=== PATIENT | male | born 1950 | race Caucasian/White ===

== ENCOUNTER 2016-09-19 15:48 | Inpatient (IN) | payer MEDICARE, BC ==
[~2016-09-19] VITALS: Ht 182.9 cm; Wt 74.8 kg
--- NOTE | ~2016-09-19 | DS ---
PATIENT'S NAME: MASON BARROSO [facility] AGE: 66 Y [address] ROOM: [address] [address] [place] [facility] [place]: 09/19/2016 Discharge Summary DISCHARGE DATE: 09/30/2016 FAMILY PHYSICIAN: Cheikh Trotter MD ATTENDING PHYSICIAN: Ferdinand Womack FINAL DIAGNOSES: 1. Systemic inflammatory response syndrome. 2. Leukocytosis secondary to likely Ruth. 3. Head and neck cancer. 4. Dysphagia. 5. Hyponatremia. 6. Chronic respiratory failure secondary to obstructive sleep apnea. 7. Pustular rash secondary to chemo. 8. Hypophosphatemia. CONSULTANTS ON THE CASE: 1. Dr. Everett. 2. Dr. De La Paz. 3. Dagmar Ulloa APRN. HOSPITAL COURSE: Please see details of admission in the H and P by Dr. Womack. Briefly, the patient was admitted for systemic inflammatory response syndrome secondary to his dysphagia and immunocompromization from his head and neck cancer. Dr. Everett followed along the case, and the patient continued to receive his oral chemotherapeutics as per Dr. Everett. The patient was started on acyclovir, Diflucan, and Magic Mouthwash. Dr. De La Paz was consulted as he was previously scheduled to have a PEG tube placement done. SCDs were utilized for DVT prophylaxis. Upon admission, code status was DNR/DNI. Home medications were continued as per his medication reconciliation. The patient was found to be an adequate candidate to undergo PEG tube placement with moderate sedation. PEG tube was placed without any difficulty. Nutrition was consulted for tube feedings. Tube feeds were initiated as per dietary recommendations on 09/20/2016. We did initiate speech therapy with a clear liquid diet. Levaquin and Azactam were able to be discontinued. The patient suffered some cutaneous effects of his chemotherapy. We monitored it closely his mucositis. Did improve quickly with the use of the mouthwash and the antibiotics and antivirals. On 09/21/2016, heparin was initiated for DVT prophylaxis. On 09/22/2016, heparin was discontinued. Lovenox was started. Vancomycin was initiated for sacral wound which appeared to be cellulitic. WOC was consulted for further evaluation and treatment. The patient continued to work with therapies, his strength and condition improved. We did have to replace some phosphorus. Chemotherapy was initiated on 09/25/2016 as per Oncology recommendations. Fluconazole was able to be discontinued on 09/27/2016. Acyclovir and isolation were discontinued on 09/27/2016 as well. PATIENT'S NAME: MASON BARROSO [facility] AGE: 66 Y [address] ROOM: [place] [address] [place] [facility] [place]: 09/19/2016 Discharge Summary DISCHARGE DATE: 09/30/2016 FAMILY PHYSICIAN: Cheikh Trotter MD ATTENDING PHYSICIAN: Ferdinand Womack It was determined that his skin lesions were more of folliculitis consistent with his chemotherapy side effects. On 09/30/2016, it was felt that the patient could safely be discharged. We discontinued his nystatin and switched him over to oral doxycycline and acyclovir for treatment of his rash and for suppression in his immunocompromised situation. Discharge instructions were discussed with Dr. Everett prior to dismissal. DIAGNOSTICS: On admission; white blood cell count was 29.1, hemoglobin 12.1, hematocrit 34.5, platelets were 89. On the day of discharge, white blood cell count was 2.8, hemoglobin 10.3, hematocrit 29.4, platelets 47. On admission; sodium was 136, potassium 4.0, chloride 100, bicarb 29, glucose 134, BUN 18, creatinine 0.6. Prior to discharge; sodium was 132, potassium 4.3, chloride 93, bicarb 32, glucose 149, BUN was 11, creatinine 0.4. Phosphorus was 1.8. Herpes zoster was negative for the sacral wound. His blood cultures were negative at 5 days. Viral culture of the skin lesion showed no isolated viruses at 7 days. Chest x-ray on 09/19/2016 shows no vascular congestion or acute infiltrates. DISCHARGE INSTRUCTIONS: The patient is to resume his previous diet. Continue with tube feeds as directed. His activity is as tolerated. He will see Dr. Everett on as scheduled. Home health will be resumed. DISCHARGE MEDICATIONS: 1. Acyclovir 800 mg daily, #20. 2. Doxycycline 100 mg daily, #20. 3. Levothyroxine 88 mcg daily. 4. Omeprazole 20 mg daily. 5. Prednisone 20 mg twice daily. 6. Flomax 0.4 mg at bedtime. 7. Hydrocodone 5/325 one to two tabs every 4 hours as needed. 8. Magic Mouthwash 5 mL p.o. every 4 hours as needed. 9. Ativan 0.5 mg p.o. 3 times daily p.r.n. 10. Lidopril, apply topically as needed to the port site. 11. Compazine 10 mg q.8 hours p.r.n. We do appreciate participating in this patient's care, and thank you very much for the ability to serve them while hospitalized at [facility]. Time spent coordinating details of discharge was greater than 30 minutes which was spent coordinating with consulting physicians and care management, completion of medication reconciliation, and education to the patient and family on above-mentioned diagnoses. MOISÉS US FOR TIGRE CADENA MD PATIENT'S NAME: MASON BARROSO [facility] AGE: 66 Y [address] ROOM: [place] [address] [place] [facility] [place]: 09/19/2016 Discharge Summary DISCHARGE DATE: 09/30/2016 FAMILY PHYSICIAN: Cheikh Trotter MD ATTENDING PHYSICIAN: Ferdinand Womack/mirian /[id number] d: 11/07/16 0644 t: 11/07/16 0901, DISCHARGE SUMMARY
--- NOTE | ~2016-09-19 | CON ---
PATIENT'S NAME: MASON BARROSO [facility] AGE: 66 Y [address] ROOM: [place] [address] [place] [facility] [place] DATE: 09/19/2016 Consultation DISCHARGE DATE: FAMILY PHYSICIAN: Cheikh Trotter MD ATTENDING PHYSICIAN: JANET ALCALA REFERRING PHYSICIAN: Mae Zepeda MD REASON FOR VISIT: Buttocks rash. HISTORY OF PRESENT ILLNESS: This is a 66-year-old male patient who was admitted to [facility] with esophagitis and hypotension. He has a significant history of head and neck cancer, dysphagia, hypothyroidism, anxiety, depression, hypertension, and BPH. He quit smoking about 2 months ago. He had a PEG tube placed on September 20, 2016. He has had his buttocks rash for 3 to 4 days. It was documented on admission to the hospital on 09/19/2016. He notes a slight burning pain. He denies incontinence or history of buttocks rash. Currently afebrile. He is on acyclovir for treatment of viral esophagitis. He received his herpes zoster vaccine about 2 years ago. He admits to weakness. He is denying chest pain or shortness of breath. He denies abdominal pain, diarrhea, or constipation. No changes in vision noted. PAST MEDICAL HISTORY: Hypertension; head and neck cancer, patient follows up with Dr. Everett; BPH; dysphagia; hypothyroidism; anxiety; depression; arthritis; and GERD. PAST SURGICAL HISTORY: Back surgery, foot surgery, PEG tube placement with removal, right chest port placement, and recent PEG tube placement on 09/20/2016. FAMILY HISTORY: His mom suffered from diabetes and hypertension. SOCIAL HISTORY: The patient lives in [place], [place]. He had been smoking 1 to 3 packs of cigarettes per day for the last 50 years up until 2 months ago. The patient denies alcohol or illicit drug use. CURRENT MEDICATIONS: Please refer to the medication administration record. ALLERGIES: PATIENT'S NAME: MASON BARROSO [facility] AGE: 66 Y [address] ROOM: [place] [address] [place] [facility] [place] DATE: 09/19/2016 Consultation DISCHARGE DATE: FAMILY PHYSICIAN: Cheikh Trotter MD ATTENDING PHYSICIAN: JANET ALCALA CLAVULANIC ACID. REVIEW OF SYSTEMS: A 10-point review of systems was completed and all are negative except as mentioned above in the HPI. PHYSICAL EXAMINATION: VITAL SIGNS: Temperature 98.1, pulse 104, respirations 20, blood pressure 116/72, and pulse oximetry 96%. Height 6 feet 0 inch and weight 81.8 kg. GENERAL: The patient is alert. Hoarse voice. HEENT: Head: Normocephalic, atraumatic. No teeth noted. Tongue is slightly dry. RESPIRATIONS: Even and unlabored. NEUROLOGICAL: Grossly nonfocal. ABDOMEN: Soft and nontender. EXTREMITIES: +2 pedal pulses. Capillary refill intact. No edema noted. Extremities are warm to touch. Petechiae noted to the lateral malleolar areas. SKIN: Right buttocks has a dermatomal grouped red slightly pustular rash. It extends to the gluteal crease and medial left buttocks. No active vesicles noted. Scant serous exudate. Slightly tender to touch. Elbows have red superficial abrasions closed with brown scabs. Heels intact. LABORATORY DATA: White blood cell count 5.1, hemoglobin 10.8, hematocrit is 30.4, platelets 76, lymph number 0.1. Sodium 129, potassium 3.7, chloride 92, bicarb 31, BUN 9, creatinine 0.4, glucose 165, albumin 2.5, and magnesium 1.3. ASSESSMENT AND PLAN: Again, this is a 66-year-old male patient who was admitted to the [facility] with esophagitis and hypotension. Wound Care was consulted to evaluate and treat a right buttocks rash. 1. Herpes zoster to buttocks. The patient admits to burning pain and areas consistent with right buttocks dermatome. The patient is already on acyclovir for viral esophagitis. The patient is to continue and he will need at least a 7-day course. Since he is undergoing chemo and he is immunosuppressed, he may need a longer course or IV therapy. He denies numbness. No secondary bacterial infection noted. I instructed the patient to use good hand hygiene. No ophthalmic symptoms noted. The patient is currently in contact isolation. I am not sure what for, he does not need to be it for herpes zoster. 2. Elbow abrasions with dryness. Nursing is to apply Aloe [place] b.i.d. No open areas currently noted. Declined elbow protectors. 3. Dysphagia. PEG tube placed. 4. Head and neck cancer. Dr. Everett is on board. PATIENT'S NAME: MASON BARROSO [facility] AGE: 66 Y [address] ROOM: [place] [address] [place] [facility] [place] DATE: 09/19/2016 Consultation DISCHARGE DATE: FAMILY PHYSICIAN: Cheikh Trotter MD ATTENDING PHYSICIAN: JANET ALCALA I would like to thank Dr. Zepeda for this consultation. SHAREE LINDA APRN FOR MD CONCHITA FARFAN/mirian /[id number] d: 09/23/162030 t: 10/01/16 [facility], CONSULTATION REPORT
--- NOTE | ~2016-09-19 | OR ---
PATIENT'S NAME: MASON BARROSO [facility] AGE: 66 Y [address] ROOM: [address] [address] [place] [facility] [place] ADMIT DATE: 09/19/2016 OR/Procedure Report DISCHARGE DATE: FAMILY PHYSICIAN: Cheikh Trotter MD ATTENDING PHYSICIAN: JANET ALCALA SURGEON: Milton De La Paz MD WREATH MACHINE OPERATOR: DATE OF PROCEDURE: 09/20/2016 PREOPERATIVE DIAGNOSIS: Dysphagia and weight loss secondary to recurrent head and neck cancer. POSTOPERATIVE DIAGNOSIS: Dysphagia and weight loss secondary to recurrent head and neck cancer. PROCEDURE PERFORMED: EGD with PEG placement. ANESTHESIA: MAC with local. SPECIMEN: None. REASON FOR PROCEDURE: The patient is a 66-year-old gentleman, who had a PEG tube a few years ago. Unfortunately, he has had a recurrence of his cancer and during treatment of this has had progressive dysphagia. He is unable to maintain adequate nutrition and fluid intake. A feeding tube was requested. We initially had planned on doing this as an outpatient, but the patient was actually admitted last night for medical issues. FINDINGS: I did not see any lesions in the esophagus. The PEG was placed without difficulty. PROCEDURE IN DETAIL: The patient was taken to the endoscopy suite and placed in the supine position with the head elevated slightly. A bite block was placed between his teeth. The gastroscope was advanced through the bite block and the esophagus was intubated under direct visualization. The esophagus was not dilated. There were no plaques or lesions anywhere within the esophagus. There were no strictures or narrowings. The stomach was insufflated and inspected. The port channel seemed to be a little distorted, but we were able to get through it easily and the duodenum was normal. We were able to localize an area for PEG placement. This was then prepped with ChloraPrep and draped. Lidocaine was infiltrated into the area. A 1 cm stab incision was made. A needle was advanced through the abdominal wall and visualized entering the gastric mucosa. A guidewire was advanced through this needle. The guidewire was grasped with a snare and carefully withdrawn through the esophagus and oropharynx. The PEG tube was then pulled over the guidewire and PATIENT'S NAME: MASON BARROSO [facility] AGE: 66 Y [address] ROOM: [id number] [place], [place] [address] LOC[place]: [facility] [place] ADMIT DATE: 09/19/2016 OR/Procedure Report DISCHARGE DATE: FAMILY PHYSICIAN: Cheikh Trotter MD ATTENDING PHYSICIAN: JANET ALCALA into position. A bolster was used to hold this in place. POSTPROCEDURE PLAN: The patient will be sent to recovery and back to his room. They can begin using the tube 12 hours after its placement. The rest of his medical care will be turned back over to the hospitalist service. MD PB COFFMAN/mirian /[id number] d: 09/20/16812 t: 09/27/1604, OPERATIVE SUMMARY
--- NOTE | ~2016-09-19 | HP ---
PATIENT'S NAME: AMANDEEP BARROSO [facility] AGE: 66 Y [address] ROOM: [place] [id number] [place]: [facility] [place]MIT DATE: 09/19/2016 History & Physical DISCHARGE DATE: FAMILY PHYSICIAN: Cheikh Trotter MD ATTENDING PHYSICIAN: JANET ALCALA DATE OF SERVICE: 09/20/2016 CHIEF COMPLAINT: Dysphagia, in need of feeding tube. HISTORY OF PRESENT ILLNESS: Amandeep is a 66-year-old gentleman, who started treatment for head and neck cancer some years ago. He had a PEG placed at that time by the Gastroenterology Service. After recovery, he was swallowing well enough that the PEG tube was removed. Recently, he has had recurrence of his head and neck cancer. He recently had a port placed and he has been undergoing treatment. The patient has had progressive dysphagia to where he was just not able to take down adequate nutrition or fluid intake. We had planned on proceeding with an outpatient PEG, but due to patient's deteriorating status, he was admitted by the hospitalist service last evening for a possible viral esophagitis. He has been rehydrated overnight. ALLERGIES: INCLUDE PENICILLIN, CLAVULANIC ACID, AND AMOXICILLIN. PAST MEDICAL HISTORY: BPH, recurrent head and neck cancer, acid reflux, arthritis, depression, and anxiety. PAST SURGICAL HISTORY: Include back surgery, foot surgery, bronchoscopy, previous PEG placement, upper and lower scopes, and the Port-A-Cath. FAMILY HISTORY: Mother had diabetes and blood pressure issues. SOCIAL HISTORY: The patient is a former smoker, but has since quit. PHYSICAL EXAMINATION: GENERAL: The patient is afebrile. VITAL SIGNS: Appeared to be within normal limits. HEENT: He has some swelling around his lower face and upper neck. He has some mild respiratory noise that occurs presumably from airway narrowing. PATIENT'S NAME: AMANDEEP BARROSO [facility] AGE: 66 Y [address] ROOM: [address] [address] [place]: [facility] [place]MIT DATE: 09/19/2016 History & Physical DISCHARGE DATE: FAMILY PHYSICIAN: Cheikh Trotter MD ATTENDING PHYSICIAN: JANET ALCALA NECK: The trachea is midline. Breathing. LUNGS: Clear to auscultation. HEART: Regular. ABDOMEN: Soft. We can see the PEG tube site from before that is well healed. It is nondistended. He has good bowel sounds. ASSESSMENT: A 66-year-old gentleman with significant dysphagia secondary to head and neck cancer. Certainly, I think a PEG is reasonable. We will have to watch him carefully for airway issues and getting through the head and neck area with the gastroscope maybe a bit of a challenge. The risks and benefits were all discussed with him and he is willing to proceed. MD PB COFFMAN/mirian /[id number] D: [id number] T: 902 HISTORY & PHYSICAL
--- NOTE | ~2016-09-19 | HP ---
[facility] AGE: 66 Y [address] ROOM: [place] [address] [place]: [facility] [place] ADMIT DATE: 09/19/2016 History & Physical DISCHARGE DATE: FAMILY PHYSICIAN: Cheikh Trotter MD ATTENDING PHYSICIAN: JANET ALCALA DATE OF SERVICE: PRIMARY CARE PHYSICIAN: Dr. Everett. CHIEF COMPLAINT: Dysphagia. HISTORY OF PRESENT ILLNESS: This is a 66-year-old male with a history of head and neck cancer. The patient has a history of dysphagia. He was being treated with Diflucan for presumed oral thrush. The patient presented with dysphagia to Dr. Everett's office. He was found to be hypotensive at that point of time. He received 2 L of bolus IV fluid. He was still hypotensive. The patient states that he is lightheaded when he gets up. He has also become very weak in the past few days and has not been able to eat anything. Dr. Everett thought that the patient needed acyclovir for questionable viral esophagitis as well. The patient was scheduled to undergo a PEG tube placement, Dr. De La aPz, tomorrow morning. We will try to accomplish that during this admission. At the time of my examination, the patient denies any chest pain or shortness of breath. Denies abdominal pain, diarrhea, or constipation. He stated that he has not been able to eat much and has dysphagia. He denies any other complaints at this point of time. REVIEW OF SYSTEMS: A 10-point review of systems was done and was otherwise negative except as mentioned above. HOME MEDICATIONS: Per SEP. ALLERGIES: 1. PENICILLIN. 2. CLAVULANIC ACID. 3. AMOXICILLIN. PAST MEDICAL HISTORY: 1. BPH. PATIENT'S NAME: [facility] AGE: 66 Y [address] ROOM: [place] [address] LOCATION: [facility] [place] ADMIT DATE: 09/19/2016 History & Physical DISCHARGE DATE: FAMILY PHYSICIAN: Cheikh Trotter MD ATTENDING PHYSICIAN: JANET ALCALA 2. Head and neck cancer, currently under chemotherapy with Dr. Everett. 3. GERD. 4. Arthritis. 5. Thyroid disease. 6. Depression. 7. Anxiety. PAST SURGICAL HISTORY: 1. Back surgery. 2. Foot surgery. 3. Bronchoscopy. 4. EGD with colonoscopy. 5. PEG tube insertion with removal subsequently. 6. Right chest port placed. FAMILY HISTORY: Mother with diabetes and hypertension. Siblings with hypertension. Sister with AFib. SOCIAL HISTORY: Denies smoking or alcohol use. He is a past smoker of [id number] smoking history. PHYSICAL EXAMINATION: VITAL SIGNS: Temperature 97.9; pulse 86, regular; respirations 20; blood pressure 107/68; and saturation 98% on room air. GENERAL: The patient is alert and oriented x3, answers all questions appropriately, in no acute distress. HEENT: Head: Normocephalic, atraumatic. Pupils are equal, round, and reactive to light. Extraocular muscles intact. Nares clear. Mucous membranes dry. NECK: Supple. HEART: Regular rate and rhythm. LUNGS: Clear to auscultation bilaterally. ABDOMEN: Soft, nontender, nondistended. Bowel sounds are present. EXTREMITIES: No clubbing, cyanosis, or edema. VASCULAR: Pulses are 2+ distally bilaterally. NEUROLOGIC: The patient is alert and oriented x3. Cranial nerves 2 through 12 grossly intact. DIAGNOSTIC STUDIES: CBC, CMP, PT, PTT and INR are pending. Chest x-ray is pending for dyspnea. CBC was done in the clinic with Dr. Everett and showed white count of 39.2, hemoglobin 14.5, hematocrit 40.0, platelets 137. CMP done in clinic showed PATIENT'S NAME: MASON BARROSO [facility] AGE: 66 Y [address] ROOM: [place] [address] LOCATION: [facility] [place] ADMIT DATE: 09/19/2016 History & Physical DISCHARGE DATE: FAMILY PHYSICIAN: Cheikh Trotter MD ATTENDING PHYSICIAN: JANET ALCALA glucose 132, BUN 22, creatinine 0.8, sodium 131, potassium 3.9, chloride 90, bicarb 32, calcium 10.0, total protein 6.7, albumin 3.4, total bilirubin 1.3, AST 22, ALT 31, alkaline phosphatase 126, anion gap 9, GFR more than 60. ASSESSMENT AND PLAN: A 66-year-old male, presenting with dysphagia. 1. Dysphagia: The patient is on Diflucan for presumed oral thrush. Continue Diflucan per Dr. Everett's recommendation. The patient has also been placed on acyclovir for questionable viral esophagitis and presumptive treatment for viral esophagitis per Dr. Everett. 2. Head and neck cancer: The patient undergoes chemotherapy with Dr. Everett. Dr. Everett will be consulted on the case. Further recommendations per Dr. Everett. 3. Dysphagia, for PEG tube placement: We will consult General Surgery for PEG placement. 4. Deep vein thrombosis prophylaxis: Sequential compression device to legs. 5. Gastroesophageal reflux disease: Continue Protonix. 6. Anxiety: Continue Ativan. 7. Hypothyroidism: Continue levothyroxine per home regimen. 8. Benign prostatic hyperplasia: Continue Flomax per home regimen. 9. Code status: DNR, DNI. Discussed with the patient and the family at the time of admission. JANET ALCALA MD MT/mirian /[id number] D: 331 T: 611 HISTORY & PHYSICAL
--- NOTE | 2016-09-19 16:15 | NUR ---
Patient admitted per wheelchair fro Dr Bunn office for hypotension and esophagitis. 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 Now with reoccurence and is currently receiving chemotherapy and he did have an infusion today at the office. Hx back surgery, foot surgery, previous PEG tube placement and removal. Allergy to Augmentin.
[2016-09-19] MEDS ORDERED: MAG119MX PO (17:01)
[2016-09-19] MEDS ORDERED: NYSTATIN100000 UNI PO (17:01)
[2016-09-19] MEDS ORDERED: DIFLUCAN100 MG PO (17:02)
[2016-09-19] MEDS ORDERED: ATIVAN 0.5MG0.5 MG PO (17:02)
[2016-09-19] MEDS ORDERED: DELTASONE20 MG PO (17:03)
[2016-09-19] MEDS ORDERED: HYDROCODON-ACE1 EAC4 PO (17:03)
[2016-09-19] MEDS ORDERED: LEVOTHROID (SY88 MCG PO (17:04)
[2016-09-19] MEDS ORDERED: NYSTATIN1 EAC1 TOP (17:04)
[2016-09-19] MEDS ORDERED: FLOMAX0.4 MG PO (17:05)
[2016-09-19] MEDS ORDERED: FLEXERIL10 MG PO (17:06)
[2016-09-19] MEDS ORDERED: LIDOPRIL 2.5%-1 EACH TOP (17:06)
[2016-09-19] MEDS ORDERED: PRILOSEC20 MG PO (17:06)
[2016-09-19] MEDS ORDERED: COMPAZINE10 MG PO (17:07)
--- NOTE | 2016-09-19 19:15 | NUR ---
Significant Event: Patient admitted at 1615. Patient alert and oriented and slightly unsteady on his feet. Redness and small open sores noted to bilateral buttocks and petechia to bilateral lower legs. Denies discomfort. BP at the Dr office was 67/50 and he received 2 1/2 liters of IV fluids. BP on admission was 107/68. Portacath to his R) chest that flushes well with good blood return. NS 500 ml IV bolus started at 1750 and then to infuse at 125 ml/hr. Patient was schedulted to have a PEG tube placement in the morning. Patient also received chemotherapy at the office and is now on Hazardous precautions. Follow up:
[2016-09-19 19:28] LABS: HEMATOCRIT 34.5 % (37.0-53.0); HEMOGLOBIN 12.1 g/dL (11.0-16.0); MCH 31.4 pg (27.0-34.0); MCHC 35.1 gm/dL (32.0-36.5); MCV 89.6 fl (83.0-98.0); MPV 8.9 fl (9.4-12.4); PLATELET COUNT 89 K/uL (150-450); RBC 3.85 M/uL (3.50-5.50); RDW-CV 17.2 % (11.9-14.6)
[2016-09-19 19:29] LABS: WBC 29.1 K/uL (4.0-11.0)
[2016-09-19 19:38] LABS: INR - (THERAPEUTIC) 1.1 (0.9-1.1); PROTIME 11.4 SECONDS (9.6-11.1); PTT 26 SECONDS (25-32)
[2016-09-19 19:44] LABS: ALBUMIN 2.6 gm/dL (3.5-5.0); ALK PHOS 105 IU/L (33-138); ALT 21 IU/L (12-78); AST 14 IU/L (10-40); BLOOD UREA NITROGEN 18 mg/dL (6-24); CALCIUM 8.2 mg/dL (8.5-10.5); CHLORIDE 100 mMol/L (96-110); CO2 29 mMol/L (22-32); CREATININE 0.6 mg/dL (0.6-1.3); ESTIMATED GFR (MDRD EQUATION) > 60; SODIUM 136 mMol/L (135-145); TOTAL BILIRUBIN 0.7 mg/dL (0.0-1.5); TOTAL PROTEIN 5.4 g/dL (6.0-8.4)
[2016-09-19 20:03] LABS: ABSOLUTE NEUTROPHIL CT (ANC) 26.5 K/uL (1.4-9.0); BANDED NEUTROPHIL # 0.3 K/uL (0.0-0.1); BANDED NEUTROPHILS % 1 %; LYMPHOCYTE # 0.3 K/uL (0.8-4.0); LYMPHOCYTE % 1 %; MONOCYTE # 2.3 K/uL (0.0-1.0); SEGMENTED NEUTROPHIL # 26.2 K/uL (1.4-9.0); SEGMENTED NEUTROPHIL % 90 %
--- NOTE | 2016-09-20 03:46 | NUR ---
SIGNIFICANT EVENT: Patient admitted for esophagitis and hypotension. Tachycardic (upper 80's to 90) and tachypneic (20's), other VSS on RA. Lung sounds are rhonchi - more pronounced on R) side, diminished/rhonchi on L) side. Chemo precautions d/t dose rec'd on 09/19/16. Increased nasal congestion and drainage. Magic mouthwash/GI cocktail given as scheduled and again PRN at 0311. Ativan given x1 at 0319. Sores bilateral sides of coccyx area. IV to R) chest port infusing 125 NS with intermittent antibiotics. NPO - sips with meds, 1515 mL IV in. 725 measured out with 1 unmeasurable void, 1 sm BM. 1PA gaitbelt, pushes IV pole if needed. Pleasant and cooperative with cares.
--- NOTE | 2016-09-20 11:00 | NUR ---
SPOKE TO PATIENT AND HIS FAMILY AT THE BEDSIDE. INTRODUCED CM AND OUR ROLE. PATIENT LIVES ALONE IN OWN HOME HE HAS FAMILY THAT HELP HIM NEEDED. PATIENT IS PLANNING ON RETURNING HOME ONCE HE IS READY FOR DISCHARGE. HE HAS HAD A PEG TUBE IN THE PAST AND DID BOLUS FEEDINGS AT THAT TIME. HE TELLS ME THAT HE FEELS COMFORTABLE WITH THE PEG TUBE AND DOING BOLUS FEEDINGS. PATIENT DOES NOT ANTICPATE ANY DISCHARGE NEEDS AT THIS TIME. CM WILL FOLLOW NEEDED.
--- NOTE | 2016-09-20 15:15 | NUR ---
A-NUTRITION CONSULT RECEIVED FOR TF RECOMMENDATIONS PEG PLACED TODAY D/T DYSPHAGIA AND WT LOSS R/T ESOPHAGEAL CA. PT WAS DX 2 YEARS AGO AND UNDERWENT RADIATION. HAD A REOCCURANCE AND IS CURRENTLY RECEIVING CHEMO. PT REPORTS THAT HE WAS EATING PRIOR TO ADMIT TO [facility]. PT IS FAMILIAR W/THE PEG TUBE HE HAD ONE 2 YEARS AGO. HE TOLERATED HIS BOLUS FEEDINGS AT THAT TIME WITHOUT DIFFICULTY. SPEECH THERAPY CONSULT NOTED. REDNESS & SMALL OAs TO BILAT BUTTOCKS. HT: 72 IN. WT: 75.6 KG. 93% IBW. BMI: 22.6 LABS: NA 136, K+ 4.0, GLU 134, BUN 18, STAFF PHYSICIAN 0.6, ALB 2.6 MEDS: MORPHINE, NYSTATIN, DELTASONE, PROTONIX, COMPAZINE, ATIVAN, NORCO, DIFLUCAN, LEVAQUIN, AZACTAM DIET RX: CLEAR LIQUIDS EST NUTR NEEDS: 3297-3845 KCALS (30-35 KCALS/KG) 76-113 GM PROTEIN (1.0-1.5 GM/KG) 1 ML FLUID/KCAL D-AT NUTRITION RISK W/DIFF. SWALLOWING R/T ESOPHAGEAL CA, WT LOSS AEB NEED FOR PEG TUBE AND ENTERAL FEEDINGS. PT ALSO AT NUTRITION RISK W/INADEQUATE INTAKE OF NUTRIENTS R/T DYSPHAGIA AEB WT LOSS, ALTERED SKIN INTEGRITY, NEED FOR PEG. I-BOLUS TF TO MEET 100% OF NUTRIENT NEEDS: GOAL IS 260 ML JEVITY 1.5 SIX TIMES DAILY W/100 ML WATER FLUSH. THIS WILL PROVIDE 2340 KCALS, 100 GM PROTEIN, AND 1186 ML FREE H20 (1786 ML W/WATER FLUSHES). PT IS IS ABLE TO TAKE FLUIDS ORALLY AT THIS TIME; WATER FLUSHES AND WATER FROM TF WILL MEET 76% OF EST NEEDS. RECOMMEND STARTING WITH 130 ML BOLUS OF JEVITY 1.5 FOR THE FIRST 2 FEEDINGS, IF PT TOLERATES WITHOUT DIFFICULTY, INCREASE TO GOAL. M/E-GOAL: TF AND PO INTAKE WILL MEET 100% OF NUTRIENT NEEDS 1)WILL MONITOR PT'S PO INTAKE AND RECOMMEND TO ADJUST TF ACCORDINGLY. 2)MONITOR PT'S FLUID INTAKE AND MAKE RECOMMENDATIONS FOR WATER FLUSHES NEEDED. 3)F/U PO INTAKE, TF, AND POC IN 1-3 DAYS
--- NOTE | 2016-09-20 15:50 | NUR ---
Significant Event: Patient is alert and oriented x3. VSS and on RA. VS q4h. Pulse was tachy this morning- 112, this afternoon 93. Blood pressure has slowly trended down, but has remain stabled. Airway sounds like it is not completely open and when patient sleeps he makes a stridor noise- but sats have been okay and patient does not have any complaints of being uncomfortable. Checking the airway often. PEG tube was placed this morning by Dr. De La Paz. Had a nutrition consult and speech therapy consult regarding tube feed and swallowing eval. Suction put at the bedside, harsh cough, was able to cough up a little bit this morning. Clear liquid diet right now, swallowing pills okay. Cutting the big ones in half. R)Chest port, fluids infusing, good blood return. Shingles to the buttocks per Terrence Smith APRN. Has been on the correct medication already. Placed in contact isolation. [place] drug precautions. Up with 1PA. Morphine and [place] given x1 for both. Relief noted. Cooperative with cares.
[2016-09-21 05:40] LABS: HEMATOCRIT 32.8 % (37.0-53.0); HEMOGLOBIN 11.5 g/dL (11.0-16.0); MCH 31.6 pg (27.0-34.0); MCHC 35.1 gm/dL (32.0-36.5); MCV 90.1 fl (83.0-98.0); MPV 9.3 fl (9.4-12.4); PLATELET COUNT 103 K/uL (150-450); RBC 3.64 M/uL (3.50-5.50); RDW-CV 17.2 % (11.9-14.6)
[2016-09-21 05:41] LABS: WBC 22.5 K/uL (4.0-11.0)
[2016-09-21 05:44] LABS: ALBUMIN 2.5 gm/dL (3.5-5.0); ANION GAP 9.7 (10.0-19.0); BLOOD UREA NITROGEN 10 mg/dL (6-24); CALCIUM 7.9 mg/dL (8.5-10.5); CHLORIDE 98 mMol/L (96-110); CO2 29 mMol/L (22-32); CREATININE 0.5 mg/dL (0.6-1.3); ESTIMATED GFR (MDRD EQUATION) > 60; MAGNESIUM 1.6 mg/dL (1.3-2.6); POTASSIUM 3.7 mMol/L (3.7-5.1); SODIUM 133 mMol/L (135-145)
[2016-09-21 05:47] LABS: PHOSPHORUS 1.8 mg/dL (2.5-4.9)
[2016-09-21 06:13] LABS: ABSOLUTE NEUTROPHIL CT (ANC) 21.8 K/uL (1.4-9.0); BANDED NEUTROPHIL # 3.2 K/uL (0.0-0.1); BANDED NEUTROPHILS % 14 %; LYMPHOCYTE # 0.2 K/uL (0.8-4.0); LYMPHOCYTE % 1 %; MONOCYTE # 0.5 K/uL (0.0-1.0); SEGMENTED NEUTROPHIL # 18.7 K/uL (1.4-9.0); SEGMENTED NEUTROPHIL % 83 %
--- NOTE | 2016-09-21 06:55 | NUR ---
SIGNIFICANT EVENT: Patient alert & oriented. Tachycardic, other VSS on RA. [place] x1 at 2121, noted relief. Ativan x1 at 0141. UA needed - last nights specimen rejected. 130 mL Jevity and 100 mL flush to peg tube at 2355 and again at 0500 tolerated well. 1100 mL voided and 1 sm BM. 1130 mL PO in. R) chest port infusing NS at 125 mL/hr. Contact isolation for shingles - primary site is on bottom, aloe vesta applied. Pleasant and cooperative with cares.
--- NOTE | 2016-09-21 15:23 | NUR ---
Significant Event: Patient is alert and oriented x3. VSS and on RA. VS q4 hours. Tolerating a clear liquid diet. At 0900 when trying the tube feeing patient had more than 60+ residual and just had drank a big amount of fluids, tube feeding held at that time. Around 1200, patient had the residual of 5 ml, tube feeding of 260ml given and flush of 100ml given. Tolerated well. Did not drink as much lunch due to the tube feeding. Voiding good amounts. Shower completed. Right chest port, fluids infusing, good blood return. Have given norco x1, relief noted, stated his pain has otherwise been tolerable. Bag balm ordered for his hands at HS while wearing gloves. He does this at home. Sister brought the bag balm. Will try tube feeding again at 1700. Goal is for 6 tube feedings in a day. Going to try and ambulate the patient in the jo this afternoon. Patient remains in contact isolation for the possiblity of shingles on his bottom- open. Keeping them dry at this time. Patient turning himself every 2 hours. Spots noted on his feet and lower legs today, Dr. Bernstein did assess. Follow up: Tube feedings, pain, ambulation
[2016-09-21 20:53] LABS: BILIRUBIN URINE NEGATIVE (NEGATIVE); BLOOD URINE NEGATIVE /UL (NEGATIVE); COLOR URINE YELLOW (YELLOW); GLUCOSE URINE NEGATIVE (NEGATIVE); KETONE URINE NEGATIVE (NEGATIVE); LEUKOCYTES URINE 25 /UL (NEGATIVE); NITRITE URINE NEGATIVE (NEGATIVE); PROTEIN URINE NEGATIVE (NEGATIVE); TURBIDITY URINE CLEAR (CLEAR); UROBILINOGEN URINE 1 mg/dL (NORMAL)
[2016-09-21 21:05] LABS: BACTERIA URINE RARE (NEGATIVE); EPITHELIAL URINE 0-2 #/HPF (NEGATIVE); RBC URINE NEGATIVE #/HPF (NEGATIVE)
[2016-09-21 21:06] LABS: MUCUS URINE 1+ (NEGATIVE)
--- NOTE | 2016-09-22 03:54 | NUR ---
Significant Event: Patient has not had any pain medications this shift, has rested well throughout the shift. Up to bathroom with one assist. Gloves to bilateral hands with bag balm during night. Tolerating tube feeding at 260 with 100 flushes. Tachycardic at times. Follow up: Continue to monitor.
[2016-09-22 05:20] LABS: HEMATOCRIT 31.7 % (37.0-53.0); HEMOGLOBIN 11.1 g/dL (11.0-16.0); MCH 31.1 pg (27.0-34.0); MCV 88.8 fl (83.0-98.0); MPV 9.3 fl (9.4-12.4); PLATELET COUNT 76 K/uL (150-450); RBC 3.57 M/uL (3.50-5.50)
[2016-09-22 05:35] LABS: ALBUMIN 2.5 gm/dL (3.5-5.0); ANION GAP 10.5 (10.0-19.0); BLOOD UREA NITROGEN 10 mg/dL (6-24); CALCIUM 7.7 mg/dL (8.5-10.5); CHLORIDE 97 mMol/L (96-110); CO2 31 mMol/L (22-32); CREATININE 0.6 mg/dL (0.6-1.3); ESTIMATED GFR (MDRD EQUATION) > 60; POTASSIUM 3.5 mMol/L (3.7-5.1); SODIUM 135 mMol/L (135-145)
[2016-09-22 05:58] LABS: ABSOLUTE NEUTROPHIL CT (ANC) 13.2 K/uL (1.4-9.0); BANDED NEUTROPHIL # 4.2 K/uL (0.0-0.1); BANDED NEUTROPHILS % 30 %; LYMPHOCYTE # 0.3 K/uL (0.8-4.0); LYMPHOCYTE % 2 %; MONOCYTE # 0.4 K/uL (0.0-1.0); SEGMENTED NEUTROPHIL % 64 %
--- NOTE | 2016-09-22 16:31 | NUR ---
Significant Event: Patient is alert and oriented x3. VSS and on RA. Has been more tired today. Doing fair on the clear liquids. Tolerating the tube feedings well. VS Q4. R)chest port, fluids infusing. Sodium, phosphate drip hung today over 6 hours, still infusing. I am not sure if his sores on his buttocks are shingles- will notify the MD when he makes rounds to look. It is draining a lot of serosangienous fluild in the brief. Good urine outputs. Ativan and norco given x1 today, complained of feeling more tight today in the throat. Up with SBA, can be wobbly at times. Has ambulated in the jo and sat in the chair. Family brought in CPAP and cough drops from home, needs to be okay'd by the doc, will also let him know when he rounds. Heparin held today- platelet count was low. Bag balm to his hands with gloves at HS. Cooperative with cares. Follow up: Sores on bottom, heparin, CPAP, cough drops
--- NOTE | 2016-09-23 03:46 | NUR ---
Significant Event: Patient tolerating tube feeding. Didn't have much for supper stating he was full from the feeding. Woc to see regarding pustules/rash to buttocks. Up several times to bathroom voiding 2000 total for this shift. Bag balm to hands with gloves at HS. Denies pain. Started on Vancomycin for possible staph. Follow up: Need order for CPAP.
[2016-09-23 05:16] LABS: ALBUMIN 2.5 gm/dL (3.5-5.0); ANION GAP 9.7 (10.0-19.0); BLOOD UREA NITROGEN 9 mg/dL (6-24); CHLORIDE 92 mMol/L (96-110); CO2 31 mMol/L (22-32); CREATININE 0.4 mg/dL (0.6-1.3); ESTIMATED GFR (MDRD EQUATION) > 60; MAGNESIUM 1.3 mg/dL (1.3-2.6); POTASSIUM 3.7 mMol/L (3.7-5.1); SODIUM 129 mMol/L (135-145)
[2016-09-23 05:19] LABS: CALCIUM 7.4 mg/dL (8.5-10.5); PHOSPHORUS 1.2 mg/dL (2.5-4.9)
[2016-09-23 05:43] LABS: HEMATOCRIT 30.4 % (37.0-53.0); HEMOGLOBIN 10.8 g/dL (11.0-16.0); MCH 31.1 pg (27.0-34.0); MCHC 35.5 gm/dL (32.0-36.5); MCV 87.6 fl (83.0-98.0); MPV 10.4 fl (9.4-12.4); PLATELET COUNT 76 K/uL (150-450); RBC 3.47 M/uL (3.50-5.50); RDW-CV 17.1 % (11.9-14.6); WBC 5.1 K/uL (4.0-11.0)
[2016-09-23 07:23] LABS: ABSOLUTE NEUTROPHIL CT (ANC) 4.9 K/uL (1.4-9.0); BANDED NEUTROPHIL # 1.4 K/uL (0.0-0.1); BANDED NEUTROPHILS % 27 %; LYMPHOCYTE # 0.1 K/uL (0.8-4.0); LYMPHOCYTE % 2 %; MONOCYTE # 0.2 K/uL (0.0-1.0); SEGMENTED NEUTROPHIL # 3.5 K/uL (1.4-9.0); SEGMENTED NEUTROPHIL % 68 %
--- NOTE | 2016-09-23 13:01 | NUR ---
A-NUTRITION F/U PT HAS BEEN HAVING SOME RESIDUALS FROM TF AND C/O FEELING FULL. DIET RX CHANGED TO PUREE AND PT HAS BEEN EATING 25-75%. VISITED W/PT RE: BOLUS TF AND PO INTAKE. DISCUSSED BOLUS OPTIONS W/PT; PT AGREEABLE TO CHANGING BOLUS FEEDINGS TO 240 ML BOLUS AFTER MEALS, IF PO INTAKE IS LESS THAN 50%. DISCUSSED BOLUSING AN ADDITIONAL 240 ML BOLUS BID IN BETWEEN MEALS, OR AT HS, BUT PT DECLINES. HE DID AGREE TO RECEIVE ENSURE ENLIVE TID W/MEALS TO PROVIDE ADDITIONAL NUTRIENTS. ABOVE CONVERSATION/PLAN DISCUSSED W/K.[place]A. LABS: NA 129, K+ 3.7, GLU 165, BUN 9, RECEPTION MANAGER 0.4, ALB 2.5 MEDS: VANCOMYCIN (09/22) DIET RX: PUREE W/ENSURE CLEAR TID EST NUTR. NEEDS: 2940-1699 KCALS AND 76-113 GM PROTEIN D-AT NUTRITION RISK W/DIFF. SWALLOWING R/T RADIATION, ESOPHAGEAL CA AEB NEED FOR ALTERED CONSISTENCY OF FOOD, PEG TUBE, BOLUS FEEDINGS. I-1)D/C ENSURE CLEAR TID 2)ADD ENSURE ENLIVE TID 3)BOLUS 240 ML JEVITY 1.5 IF PT'S PO INTAKE IS LESS THAN 50%. M/E-GOAL: PO INTAKE >/=50% 1)F/U PO INTAKE AND IF NEEDED ADJUST BOLUS FEEDING SCHEDULE IN 2-3 DAYS; PT WAS AGREEABLE TO THIS. 2)F/U LABS, WT, AND POC IN 2-3 DAYS
--- NOTE | 2016-09-23 16:31 | NUR ---
Significant Event: Patient alert and oriented. Up to the bathroom with assist to void and up in the recliner x 2. Portacath to his R) chest patent with good blood return. Patient changed to airborne isolation due to disseminated shingles to bilateral buttocks that are red and having serous drainage. Aloe vista applied prn. Patient states having minimal discomfort at his PEG tube insertion site. Bolus tube feeding held at 0920 due to high residual of >120 ml. Tube feeding bolus given at 1120 with no residual noted. New orders to only give bolus feeding if oral intake at meals is <50%. Oral Acyclovir changed to IV route. Family brought patients CPAP machine from home. Mg level at 1.3 and patient received 2 gm IV Mag sulfate. Phosphorus at 1.2 and patient to receive K+ phosphate IV. Follow up: Airborne isolation.
--- NOTE | 2016-09-24 04:36 | NUR ---
Significant Event: Pt alert and Orineted x3. Cooperative with cares. airborn precaution. pt denied wanting to take any PO meds, crushed and placed in peg tube. Pt ate 10 percent of dinner 240 tube feed done with 100 ML flush. if pt eats less then 50 percent we are to do tube feed. pt very fatigued this shift. states he has some discomfort but refused pain medication. sores bilareally on buttock aloe vesta applied. port to chest GBR. 1 assist. Follow up:
[2016-09-24 05:50] LABS: HEMATOCRIT 29.1 % (37.0-53.0); HEMOGLOBIN 10.5 g/dL (11.0-16.0); MCH 31.3 pg (27.0-34.0); MCHC 36.1 gm/dL (32.0-36.5); MCV 86.6 fl (83.0-98.0); MPV 9.4 fl (9.4-12.4); RBC 3.36 M/uL (3.50-5.50); RDW-CV 16.7 % (11.9-14.6); WBC 2.7 K/uL (4.0-11.0)
[2016-09-24 05:53] LABS: PLATELET COUNT 54 K/uL (150-450)
[2016-09-24 06:07] LABS: ALBUMIN 2.2 gm/dL (3.5-5.0); ANION GAP 10.8 (10.0-19.0); BLOOD UREA NITROGEN 7 mg/dL (6-24); CALCIUM 7.5 mg/dL (8.5-10.5); CO2 31 mMol/L (22-32); CREATININE 0.3 mg/dL (0.6-1.3); ESTIMATED GFR (MDRD EQUATION) > 60; MAGNESIUM 1.6 mg/dL (1.3-2.6); PHOSPHORUS 2.1 mg/dL (2.5-4.9); POTASSIUM 3.8 mMol/L (3.7-5.1); SODIUM 126 mMol/L (135-145)
[2016-09-24 06:09] LABS: CHLORIDE 88 mMol/L (96-110)
[2016-09-24 06:43] LABS: ABSOLUTE NEUTROPHIL CT (ANC) 2.4 K/uL (1.4-9.0); BANDED NEUTROPHIL # 0.5 K/uL (0.0-0.1); BANDED NEUTROPHILS % 20 %; LYMPHOCYTE # 0.2 K/uL (0.8-4.0); LYMPHOCYTE % 7 %; MONOCYTE # 0.2 K/uL (0.0-1.0); SEGMENTED NEUTROPHIL # 1.8 K/uL (1.4-9.0); SEGMENTED NEUTROPHIL % 67 %
--- NOTE | 2016-09-24 16:45 | NUR ---
Significant Event:PT. A/O AND COOPERATIVE. C/O DIFFICULTY SWALLOW BUT STATES IT HAS IMPROVED SOME SINCE YESTERDAY. ATE 75% OF BREAKFAST AND 50% OF LUNCH. ENSURE GIVEN PER PEG TUBE AT [address] REQUEST. CHEST PORT RIGHT CHEST. GIVE FEEDING BOLUS IF ORAL INTAKE IS LESS THAN 50% OF TRAY. CPAP AT HS. OPEN AREAS ON BOTTOCKS WITH ALOE VERA APPLIED. REFUSED PAIN MEDS. Follow up:
[2016-09-25 04:50] LABS: ALBUMIN 2.2 gm/dL (3.5-5.0); CALCIUM 7.6 mg/dL (8.5-10.5); CO2 31 mMol/L (22-32); CREATININE 0.4 mg/dL (0.6-1.3); ESTIMATED GFR (MDRD EQUATION) > 60; MAGNESIUM 1.7 mg/dL (1.3-2.6); SODIUM 127 mMol/L (135-145)
[2016-09-25 04:55] LABS: BLOOD UREA NITROGEN 14 mg/dL (6-24); CHLORIDE 88 mMol/L (96-110); PHOSPHORUS 0.9 mg/dL (2.5-4.9)
[2016-09-25 04:59] LABS: HEMOGLOBIN 10.7 g/dL (11.0-16.0); MCH 31.1 pg (27.0-34.0); MCHC 35.7 gm/dL (32.0-36.5); MCV 87.2 fl (83.0-98.0); MPV 10.3 fl (9.4-12.4); RBC 3.44 M/uL (3.50-5.50); RDW-CV 17.1 % (11.9-14.6); WBC 1.5 K/uL (4.0-11.0)
[2016-09-25 05:00] LABS: PLATELET COUNT 53 K/uL (150-450)
--- NOTE | 2016-09-25 05:06 | NUR ---
Significant Event: PATIENT IS ALERT AND ORIENTED. LUNGS ARE AUDIBLY COARSE TO AUSCULTATION. PATIENT COMPLAINTS OF THROAT PAIN BUT DENIES ANY PAIN MEDICATION. PEG TUBE TO ABD. FEEDINGS IF PATIENT EATS LESS THAN 50% OF MEAL. ELBOWS ARE EXCORIATED. HANDS ARE DRY AND CRACKED. VSS. TEMP WAS 99.2. RECEIVED IV MAG YESTERDAY. AIRBORN PRECATIONS IN PLACE. BEING TREATED FOR THRUSH. DENTAL RESIDENT VISIT SCHEDULED FOR TODAY TO R/O SHINGLES TO BUTTOCK OPEN SORES. Follow up:
[2016-09-25 05:33] LABS: ABSOLUTE NEUTROPHIL CT (ANC) 1.4 K/uL (1.4-9.0); BANDED NEUTROPHIL # 0.8 K/uL (0.0-0.1); BANDED NEUTROPHILS % 54 %; LYMPHOCYTE # 0.1 K/uL (0.8-4.0); LYMPHOCYTE % 6 %; SEGMENTED NEUTROPHIL # 0.6 K/uL (1.4-9.0); SEGMENTED NEUTROPHIL % 38 %
--- NOTE | 2016-09-25 17:21 | NUR ---
Significant Event:VSS, A/O lungs coarse, pt able to cough up moderate amount of secretions (cream colored). Ate 100% of breakfast and 50% of lunch. Eats slowly, sallows without choking. Peg tube remains intact. R chest port flushed easily. Refused pain meds. Elbow pads placed on arms for dry red skin, buttocks skin is red/dried with open sores. Dr. Flores seen pt. Follow up:Chemo tomorrow.
--- NOTE | 2016-09-26 03:21 | NUR ---
Significant Event:PT AAOX3.PLEASANT WITH STAFF.UP WITH 1 STAND BY ASSIST.CAN BE WEAK AND UNSTEADY AT TIMES.VSS DURING SHIFT.PORT TO RIGHT UPPER CHEST.PT CONT OF BOWEL AND BLADDER. USES CALL LIGHT APPROP.BUTTOCKS CONTINUE TO HAVE OPEN AREAS,AREAS ARE DRAINING.CONTINUES TO BE IN ISOLATION WELL NEUTROPENIC PRECAUTIONS.CHEMO NURSE WILL NEED TO BE NOTIFIED OF THIS PRIOR TO HIS CHEMO APPT. DENIES PAIN WHEN ASKED. TAKES MEDICATION WHOLE. Follow up:
[2016-09-26 05:15] LABS: ALBUMIN 2.1 gm/dL (3.5-5.0); ANION GAP 10.4 (10.0-19.0); BLOOD UREA NITROGEN 11 mg/dL (6-24); CALCIUM 7.8 mg/dL (8.5-10.5); CHLORIDE 91 mMol/L (96-110); CO2 32 mMol/L (22-32); CREATININE 0.5 mg/dL (0.6-1.3); ESTIMATED GFR (MDRD EQUATION) > 60; MAGNESIUM 1.6 mg/dL (1.3-2.6); POTASSIUM 4.4 mMol/L (3.7-5.1); SODIUM 129 mMol/L (135-145)
[2016-09-26 05:18] LABS: PHOSPHORUS 1.7 mg/dL (2.5-4.9)
[2016-09-26 05:44] LABS: HEMATOCRIT 28.4 % (37.0-53.0); HEMOGLOBIN 10.2 g/dL (11.0-16.0); MCH 31.8 pg (27.0-34.0); MCHC 35.9 gm/dL (32.0-36.5); MCV 88.5 fl (83.0-98.0); MPV 9.8 fl (9.4-12.4); RBC 3.21 M/uL (3.50-5.50); RDW-CV 17.4 % (11.9-14.6)
[2016-09-26 05:48] LABS: PLATELET COUNT 49 K/uL (150-450); WBC 1.8 K/uL (4.0-11.0)
[2016-09-26 07:17] LABS: ABSOLUTE NEUTROPHIL CT (ANC) 1.7 K/uL (1.4-9.0); BANDED NEUTROPHIL # 0.5 K/uL (0.0-0.1); BANDED NEUTROPHILS % 30 %; LYMPHOCYTE # 0.1 K/uL (0.8-4.0); LYMPHOCYTE % 3 %; MONOCYTE # 0.1 K/uL (0.0-1.0); SEGMENTED NEUTROPHIL # 1.2 K/uL (1.4-9.0); SEGMENTED NEUTROPHIL % 64 %
--- NOTE | 2016-09-26 09:09 | NUR ---
A - NUTRITION F/U. LABS: NA+ 129, GLU 155, BUN/EMBOSSING CALENDER OPERATOR 11/0.5, ALB 2.1, WBC 1.8. PT W/ ORAL THRUSH. O/A'S TO BUTTOCKS. DIET: PUREE W/ ENSURE BOLUS IF PO < 50%. INTAKE HAS BEEN 50-100%. EST NEEDS: 8170-1450 KCALS, 76-113 GM PROTEIN, 1 ML/KCAL FLUIDS. D - DIFFICULTY SWALLOWING R/T ESOPHAGEAL CA AEB ALTERED CONSISTENCY DIET AND PEG TUBE PLACEMENT. I - GOAL: CONTINUED 50-100% INTAKE UNTIL DISMISSAL. M/E - CONT W/ CURRENT POC, F/U IN 3-5 DAYS.
--- NOTE | 2016-09-26 11:00 | NUR ---
D:Orders received for patient to receive Cetuximab today. I:An accurate height and weight were obtained. The Anti-Cancer Drug Administration Checklist was completed. The labels with drug doseage were double checked by nursing and pharmacy. The patient signed the consent form and agreed to proceed with the cetuximab. The patient had received this drug in the past and tolerated it without reaction. The patient denied questions about the drug at this time. The patient has a port to right chest that has good blood return present - this is the site the drug will be given. R:The drug has been started and the patient is tolerating the infusion well thus far. Pt sleeping and vitals remain stable. P:Will continue to monitor the patient throughout the infusion and post infusion for s/s of reaction. Fiordaliza ZHAO
--- NOTE | 2016-09-26 11:15 | NUR ---
I have examined the student charting and find it acceptable. PAVEL Mendoza
--- NOTE | 2016-09-26 19:13 | NUR ---
Significant event: Patient is alert and oriented. VSS. Is tachycardic. On room air. Is in isolation for shingles to the bottom, they are open, draining, sluffing. Also is borderline neutropenic and so is in neutropenic precautions. Is getting chemotherapy. will take pills whole, if able. Will let you know if needs crushed. Voice is quiet. Is stand by assist. has port to right chest with with good blood return. Has intermittent antibiotics. If does not eat 50% of meals, needs to have Jevity 1.5, 240ml bolus. Does have occasional congestive, productive cough. Is able to cough the phlegm up/. Pleasant and cooperative with cares.
--- NOTE | 2016-09-27 04:38 | NUR ---
NEURO: A&O. Reportedly can be unsteady at times. CARDIO: SCDs. RESP: Mid 90's on RA. GI/: Daily weight. If eats less than 50% meal gets Jevity bolus. SKIN: Draining open areas on buttocks. IV: Port right chest. Intermittant antibiotics. ACTIVITY: 1 assist. PAIN: No c/o pain this shift. PLAN: Discharge when appropriate.
[2016-09-27 06:40] LABS: BLOOD UREA NITROGEN 11 mg/dL (6-24); CHLORIDE 93 mMol/L (96-110); CO2 33 mMol/L (22-32); CREATININE 0.4 mg/dL (0.6-1.3); ESTIMATED GFR (MDRD EQUATION) > 60; MAGNESIUM 1.7 mg/dL (1.3-2.6); SODIUM 131 mMol/L (135-145)
[2016-09-27 06:42] LABS: ALBUMIN 1.9 gm/dL (3.5-5.0)
[2016-09-27 06:45] LABS: HEMATOCRIT 27.4 % (37.0-53.0); HEMOGLOBIN 9.7 g/dL (11.0-16.0); MCH 31.7 pg (27.0-34.0); MCHC 35.4 gm/dL (32.0-36.5); MCV 89.5 fl (83.0-98.0); MPV 9.7 fl (9.4-12.4); RBC 3.06 M/uL (3.50-5.50); RDW-CV 18.1 % (11.9-14.6)
[2016-09-27 06:50] LABS: PLATELET COUNT 41 K/uL (150-450); WBC 1.6 K/uL (4.0-11.0)
[2016-09-27 08:16] LABS: ABSOLUTE NEUTROPHIL CT (ANC) 1.5 K/uL (1.4-9.0); BANDED NEUTROPHIL # 0.5 K/uL (0.0-0.1); BANDED NEUTROPHILS % 31 %; LYMPHOCYTE # 0.1 K/uL (0.8-4.0); LYMPHOCYTE % 5 %; MONOCYTE # 0.1 K/uL (0.0-1.0); SEGMENTED NEUTROPHIL % 60 %
--- NOTE | 2016-09-27 11:32 | NUR ---
I have examined the student charting and find it acceptable. PAVEL Mendoza
--- NOTE | 2016-09-27 19:25 | NUR ---
RECEIVED REFERREAL TO [facility] FOR PATIENT TO GO TO IN [place]. REFERAL MADE TO [facility] IN [place]. I RECEIVED A CALL FROM HER AFTER SHE REVIEWED IT AND SHE TELLS ME THAT THEY DO NOT HAVE THE MEDICATION OR THE TUBE FEEDING THAT [facility] GETTING. SHE WILL LET ME KNOW ON FRIDAY TO WHETHER OR NOT THEY CAN GET IT. I SPOKE TO MASON AND HIS SISTER ANGELI AND UPDATED THEM. ALSO NOTIFIED ROBYN SWEET AND UPDATED HER. WILL FOLLOW UP WITH [facility] ON FRIDAY.
--- NOTE | 2016-09-27 19:36 | NUR ---
Significant event: Patient is alert and oriented x3. VSS on room air. Port to right chest. Is in isolation for shingles to bottom and in neutropenic precautions. Has ate well today, no bolus of tube feeding needed. Is stand by assist. Uses urinal at bedside. Moisture barrier to bottom per patient request. Does have occasional productive cough, pt able to clear with coughing. Plans to possibly go to swing bed beginning of next week. Pleasant and cooperative with cares.
--- NOTE | 2016-09-28 04:53 | NUR ---
NEURO: A&O x 3. CARDIO: SCDs. RESP: Mid 90's on RA. GI/: Daily weight. IF eats less than 50% of meal gets Jevity bolus. SKIN: Draining open areas on buttocks- using moisture barrier. IV: Port to right chest. SL. Nurse lab draws. ACTIVITY: SBA. PAIN: No c/o pain this shift. PLAN: [place] swingbed Friday.
[2016-09-28 06:16] LABS: ANION GAP 9.4 (10.0-19.0); BLOOD UREA NITROGEN 11 mg/dL (6-24); CALCIUM 8.1 mg/dL (8.5-10.5); CHLORIDE 93 mMol/L (96-110); CO2 33 mMol/L (22-32); CREATININE 0.4 mg/dL (0.6-1.3); ESTIMATED GFR (MDRD EQUATION) > 60; MAGNESIUM 1.8 mg/dL (1.3-2.6); POTASSIUM 4.4 mMol/L (3.7-5.1); SODIUM 131 mMol/L (135-145)
[2016-09-28 06:26] LABS: PHOSPHORUS 1.7 mg/dL (2.5-4.9)
[2016-09-28 06:31] LABS: HEMATOCRIT 27.5 % (37.0-53.0); HEMOGLOBIN 9.7 g/dL (11.0-16.0); MCHC 35.3 gm/dL (32.0-36.5); MCV 90.8 fl (83.0-98.0); MPV 8.9 fl (9.4-12.4); RBC 3.03 M/uL (3.50-5.50); RDW-CV 18.2 % (11.9-14.6)
[2016-09-28 06:36] LABS: PLATELET COUNT 42 K/uL (150-450); WBC 1.7 K/uL (4.0-11.0)
[2016-09-28 07:18] LABS: ABSOLUTE NEUTROPHIL CT (ANC) 1.4 K/uL (1.4-9.0); BANDED NEUTROPHIL # 0.6 K/uL (0.0-0.1); BANDED NEUTROPHILS % 33 %; LYMPHOCYTE # 0.2 K/uL (0.8-4.0); LYMPHOCYTE % 10 %; MONOCYTE # 0.2 K/uL (0.0-1.0); SEGMENTED NEUTROPHIL # 0.8 K/uL (1.4-9.0); SEGMENTED NEUTROPHIL % 48 %
--- NOTE | 2016-09-28 10:27 | NUR ---
NUTRITION CONSULT FOR HOME TF RECS NOTED. PT EATING WELL, HAVE NOT NEEDED TO SUPPLEMENT W/ TF. FOR HOME REC BOLUS OF ONE BOTTLE ENSURE PLUS IF MEAL INTAKE < 50%. ALSO, WT WILL NEED TO BE MONITORED; IF WT BEGINS TO DECREASED WOULD BOLUS ONE BOTTLE OF ENSURE BID B/T MEALS.
--- NOTE | 2016-09-28 16:15 | NUR ---
A&O. VSS. SBA. NO C/O PAIN. R CX PORT. ISO FOR SHINGLE AND NEUROPENIC. PEG TO ABD 240ML JEVITY IF NOT EATING AT LEAST 50% MEALS. ATE WEEL TODAY. DAILY WT. VD'S X5. NO BM. LS CLEAR CSM WNL. PLAN IS [place] [facility] FRIDAY
[2016-09-29 04:49] LABS: BICARBONATE 34.3 mmol/L (18.0-23.0); PCO2 46 mmHg (35-45); PO2 71 mmHg (80-90)
--- NOTE | 2016-09-29 05:16 | NUR ---
Significant Event: Patient alert and oriented X4. Up ad karen in room. Port to R) chest. Daily weight nurse draw. Repos self often. Elbow pads on. Neutropenic precautions. Peg tube to be used if patient does not eat 50% of meals. Patient at 75% suypper. Plan is swing bed in [place] friday. Non diseminated shingles to L) arm. Denies pain. Follow up: Monitor shingles
[2016-09-29 06:07] LABS: ALBUMIN 2.1 gm/dL (3.5-5.0); ANION GAP 11.3 (10.0-19.0); BLOOD UREA NITROGEN 11 mg/dL (6-24); CHLORIDE 93 mMol/L (96-110); CO2 32 mMol/L (22-32); CREATININE 0.4 mg/dL (0.6-1.3); ESTIMATED GFR (MDRD EQUATION) > 60; MAGNESIUM 1.6 mg/dL (1.3-2.6); POTASSIUM 4.3 mMol/L (3.7-5.1); SODIUM 132 mMol/L (135-145)
[2016-09-29 06:08] LABS: PHOSPHORUS 1.8 mg/dL (2.5-4.9)
[2016-09-29 06:18] LABS: HEMATOCRIT 28.5 % (37.0-53.0); MCH 32.2 pg (27.0-34.0); MCHC 35.1 gm/dL (32.0-36.5); MCV 91.6 fl (83.0-98.0); MPV 9.9 fl (9.4-12.4); RBC 3.11 M/uL (3.50-5.50); RDW-CV 18.2 % (11.9-14.6)
[2016-09-29 06:20] LABS: PLATELET COUNT 44 K/uL (150-450); WBC 1.9 K/uL (4.0-11.0)
[2016-09-29 06:48] LABS: ABSOLUTE NEUTROPHIL CT (ANC) 1.5 K/uL (1.4-9.0); BANDED NEUTROPHIL # 0.1 K/uL (0.0-0.1); BANDED NEUTROPHILS % 7 %; LYMPHOCYTE # 0.2 K/uL (0.8-4.0); LYMPHOCYTE % 11 %; MONOCYTE # 0.2 K/uL (0.0-1.0); SEGMENTED NEUTROPHIL # 1.4 K/uL (1.4-9.0); SEGMENTED NEUTROPHIL % 73 %
--- NOTE | 2016-09-29 16:09 | NUR ---
Patient is alert and oriented, VSS, on room air. Lungs sounds are course to diminished, productive cough. SBA to indpendent in room. In contact isolation for active shingles and neutropenic precautions. Family is in room. PEG tube is clamped but is to be used if not eating more than 50% of his meal. Plan is to discharge to [facility] bed tomorrow.
--- NOTE | 2016-09-30 04:26 | NUR ---
Significant Event: Patient alert and oriented X4. Up with stand by assist in room. Vitals stable and on room air. Tachy in low 100s. CPAP at night. POrt to L) chest saline locked. PNeumatics on tonight. Ativan given with HS meds. Denies pain. Tube feedings if not eating 50% of meals. Peg tube to abdomen. In neutropenic preciations and contact for shingles. Some new shingles noted to abdomen, R) arm. Voiding per urinal tonight. Daily weight. Nurse draw. Repossitions self often. Elbow pads on. Lungs are coarse. Prefers vanilla ensure. Foul smellingurine. Productive cough. Plan to go to [place] swing bed today. Follow up: Monitor shingles
[2016-09-30 05:51] LABS: ALBUMIN 2.1 gm/dL (3.5-5.0); ANION GAP 11.1 (10.0-19.0); BLOOD UREA NITROGEN 9 mg/dL (6-24); CALCIUM 8.2 mg/dL (8.5-10.5); CHLORIDE 93 mMol/L (96-110); CO2 30 mMol/L (22-32); CREATININE 0.4 mg/dL (0.6-1.3); ESTIMATED GFR (MDRD EQUATION) > 60; MAGNESIUM 1.5 mg/dL (1.3-2.6); PHOSPHORUS 2.2 mg/dL (2.5-4.9); POTASSIUM 4.1 mMol/L (3.7-5.1); SODIUM 130 mMol/L (135-145)
[2016-09-30 06:04] LABS: HEMATOCRIT 29.4 % (37.0-53.0); HEMOGLOBIN 10.3 g/dL (11.0-16.0); MCV 91.3 fl (83.0-98.0); MPV 9.7 fl (9.4-12.4); RBC 3.22 M/uL (3.50-5.50); RDW-CV 18.3 % (11.9-14.6); WBC 2.8 K/uL (4.0-11.0)
[2016-09-30 06:08] LABS: PLATELET COUNT 47 K/uL (150-450)
[2016-09-30 07:07] LABS: ABSOLUTE NEUTROPHIL CT (ANC) 2.6 K/uL (1.4-9.0); BANDED NEUTROPHILS % 37 %; LYMPHOCYTE # 0.1 K/uL (0.8-4.0); LYMPHOCYTE % 5 %; MONOCYTE # 0.1 K/uL (0.0-1.0); SEGMENTED NEUTROPHIL # 1.6 K/uL (1.4-9.0); SEGMENTED NEUTROPHIL % 56 %
--- NOTE | 2016-09-30 10:00 | NUR ---
SPOKE TO TRACY TREVINO AT THE [facility]. GAVE HER UPDATE ON [facility]. SHE WOULD LIKE FOR ME TO FAX INFO TO HER SHE WILL REVIEW IT WITH THE TEAM AND GET BACK TO ME TO WHETHER OR NOT THEY CAN ACCEPT PATIENT. SHE VOICES CONCERNS AT TO WHETHER OR NOT HE HAS CRITERIA FOR THE SB. WILL CONT TO FOLLOW NEEDED.
--- NOTE | 2016-09-30 11:30 | NUR ---
RECEIVED REFERRAL THAT PATIENT WOULD LIKE [facility] [place]. I MEET WITH PATIENT AND HE CONFIRMS THAT HE WANTS GO HAVE HHC INSTEAD OF GOING TO THE SB IN [place]. I SPOKE TO TRACY AND SHE HAD MEET WITH MASON'S SISTER AND SHE ALSO MEET WITH THE TEAM AND THEY DO NOT FEEL [facility] HAS CRITERIA AT THIS TIME FOR SB. AND AGREES THAT MASON WOULD BENEFIT FROM HAVING C. AND HIS SISTER IS IN AGREEMENT TO THIS PLAN. SPOKE TO DR. CADENA AND HE AGREES WITH THE DISCHARGE PLAN OF [facility] [place].
--- NOTE | 2016-09-30 14:30 | NUR ---
MEET WITH MASON AND HIS SISTER AT THE BEDSIDE. THEY WOULD LIKE [facility]ROUGH [facility]. REFERRAL MADE TO [facility] WITH [facility] IN [place]. WILL FAX ORDERS TO HER. NOTIFIED TRACY TREVINO AND UPDATED HER THAT PATIENT WOULD LIKE [facility] AND THAT DR. JAMES HAS ORDERED BELINDA TO SEE. TRACY WILL PLAN ON SEEING PATIENT. WILL FAX INFO AND DISCHARGE ORDERS TO [facility].
[2016-09-30] MEDS ORDERED: ZOVIRAX800 MG PO (15:22)
[2016-09-30] MEDS ORDERED: DOXYCYCLINE100 MG PO (15:25)
--- NOTE | 2016-09-30 15:41 | NUR ---
D: Orders received for the patient to be discharged to home today. I: Dismissal instructions were prepared and reviewed with the patient and his family virtually. The following information was discussed including Vishal teaching sheets: Understanding Sepsis, Self care for skin rashes, Acyclovir, Doxycycline and Preventing DVT. Reviewed previously made appointment with Dr. Everett and new prescriptions. R: The patient and family both verbalized understanding of the dismissal education at the time of teaching with no further questions. P: The above information was shared with the primary nurse and the charge nurse that the dismissal education was completed. The patient is ready for dishcarge to the front door via wheel chair by nursing staff.
--- NOTE | 2016-09-30 15:45 | NUR ---
Patient is alert and oriented, slightly hypotensive this morning. R) chest port was deassessed. Patient will be dismissed home today. In isolation for neutropenic precautions and an unknown skin rash, tests came back negative for shingles. Can take smaller pills ok but struggles with larger ones, did crush one and put in pudding. Likes to have soup for lunch and supper. PEG tube is clamped, bolus feedings only if patient does not have 50% of meal.
--- NOTE | 2016-10-02 14:49 | NUR ---
Post hospitalization follow up call made to patient. Patient has difficulty speaking so I talked with his sister, Court. Patient had an appointment with Dr. Everett tomorrow however it has been changed to next week. Sister reports that patient's mouth sores have healed however most of his food and fluid is given through a PEG tube. She is concerned about some of the medication that he tries to swallow and I will review the medications to see if we can get any of them changed to a liquid form, will call sister back with the information. Reports that when patient was admitted to hospital he had one open sore on his "bottom" and when he was discharged another sore had developed. Was disappointmed that no one told them about the Aloe Herriman he could have been using until the day of his dismissal. Patient is currently using Boost for his feeding, will check into the protein content of this. Will call sister back with the information.
== END 2016-09-30 16:18 | disposition home health service (06) | DRG 146 ==
LOC: GMSU 15:48 → GPOC 16:00 → EDSTATUS 09-20 16:00 → GMSU 09-23 16:16
PROVIDERS: Internal Medicine; Internal Medicine Hematology & Oncology; ADMIT Family Medicine
PROC: 0DH63UZ Insertion of Feeding Device into Stomach, Percutaneous Approach (ICD-10-PCS; principal; 2016-09-20)
PROC: 3E03305 Introduction of Other Antineoplastic into Peripheral Vein, Percutaneous Approach (ICD-10-PCS; 2016-09-26)
DX: C32.1 Malignant neoplasm of supraglottis (principal); D61.810 Antineoplastic chemotherapy induced pancytopenia; J96.10 Chronic respiratory failure, unspecified whether with hypoxia or hypercapnia; E87.3 Alkalosis; I95.9 Hypotension, unspecified; E44.0 Moderate protein-calorie malnutrition; R65.10 Systemic inflammatory response syndrome (SIRS) of non-infectious origin without acute organ dysfunction; B37.0 Candidal stomatitis; L03.317 Cellulitis of buttock; E87.1 Hypo-osmolality and hyponatremia; N40.0 Benign prostatic hyperplasia without lower urinary tract symptoms; K21.9 Gastro-esophageal reflux disease without esophagitis; F32.9 Major depressive disorder, single episode, unspecified; F41.9 Anxiety disorder, unspecified; Z87.891 Personal history of nicotine dependence; E03.9 Hypothyroidism, unspecified; Z66 Do not resuscitate; B02.9 Zoster without complications; K20.8 Other esophagitis; E86.0 Dehydration; E83.42 Hypomagnesemia; G47.33 Obstructive sleep apnea (adult) (pediatric); E83.39 Other disorders of phosphorus metabolism; R21 Rash and other nonspecific skin eruption; T45.1X5A Adverse effect of antineoplastic and immunosuppressive drugs, initial encounter
CPT/HCPCS: J0133; J1644; J1650; J1956; J2270; J3370; J3475; J7030; J7040; J7050; J7512; J9055